=== PATIENT | male | born 1995 ===

== ENCOUNTER → 2017-07-09 | Outpatient (CLI) | payer OTHER, MEDICAID ==
--- NOTE | 2017-07-09 11:17 | NOWCEV ---
[facility] OUTPATIENT REHABILITATION SERVICES WHEELCHAIR CLINIC EVALUATION AND LETTER OF JUSTIFICATION Patient Name: KORY NEAL Physician: Rogers Lee MD [place] Date: 07/09/17 Therapist: Emilee Cabral PT,MSPT Date of : 1995 MR#: [id number] Contact: Ronda Neal Subscriber: KORY NEAL Primary Ins: MEDICARE OUTPATIENT Subscriber #: [id number] EVALUATION FINDINGS Medical history - Kory is a 22y/o male with CP. He has been utilizing a wheelchair for functional/household mobility since the age of 5. His current chair is 6 years old and is showing age related deterioration from continuous daily use. He was referred to this clinic by his doctor to have recommendations for the most medically appropriate wheelchair to fit his needs and optimize function. Functional Mobility - Kory cannot functionally ambulate, even with an AD such as a walker or crutches. He has been using a MWC and occasionally a PWC to access MRADLs in the home and for all mobility since the age of 5. He reports that he will intermittently crawl on hands and knees around hip home if not using his wheelchair. Kory can self propel his current ultralight weight MWC independently within his home on level surfaces, and up ramps of low incline. He does require some physical assistance to push up ramps of greater length or incline. When he does self propel he utilizes short strokes, and his LEs are somewhat extended, so his feet do not remain on his foot plates. Kory is modified independent with a partial stand pivot transfer to/from his MWC. He pushes up with his UEs on his arms rests and maintains a crouched posture throughout the transition. He maintains firm UE support on wheelchair arm rests throughout transfer, and pivots himself using his UEs. He is modified I with sup to/from sit transitions. Head/Trunk control - Kory's head control is WNL. He is able to sit unsupported on a stable surface, and take on min to mod challenges in this position, although has LOB with any greater challenges due to his tone, decreased postural stability and kyphoscoliosis. Motor involvement - Bons LEs are more impacted from his CP than his UEs. He can only move his LEs within synergistic patterns. He has significant spasticity in B LEs (3+ in his hamstring and internal rotators on the modified Haresh scale). He also demonstrates extensor tone in his LE's during self propulsion of his chair. Hip passive hip flexion is limited to 90deg B, his R hip passive ER is limited to ~10degrees, and hip L hip passive ER is limited to 0deg. His LE MMT is as follows: DF: 0/5 B, knee extension R: 3/5, L 3-/5, hip flexion R: 3-/5, L: 2-/5. He demonstrates 4 to 4-/5 strength into shoulder flexion and abduction. He does have impaired loan expeditor strength and decreased coordination in his hands. Posture - Kory sits with significant postural asymmetry. He has a posterior pelvic tilts and large kyphoscoliosis with a R sided convexity, and R thoracic rib hump. His R shoulder is higher than his L and his L ilium is higher than his R. Sitting in his current MWC he leans to the L. His L leg is 1" longer than his R. His L hip is adducted and internally rotated more than his R, and B feet are externally rotated. Skin Sensation - Kory does not have any history of skin breakdown. He is continent of bowel and bladder. Endurance - Kory is in his MWC from the morning through evening daily. ADLs - Kory is modified I with ADLs such as washing up from a wheelchair level. He relies on his grandmother for meal prep and cleaning. Cognitive/Social - Kory lives in a ranch style home with his grandmother, who is his primary caregiver. The home has a level entry. Kory attends a day program 3-4days per week which he attends in his MWC. Current wheelchair - Kory is currently utilizing a Quickie 2 Lite with JayLite cushion and Matrix contoured back rest. The chair is 6 years old and is now too small for Kory as he has gained weight over the past 6 years. The chair is too narrow and the leg length is too short which is not provided appropriate pressure distribution and placing increased pressure through his sacrum. Additionally the chair is showing age related deterioration from constant daily use. MEDICAL and FUNCTIONAL NEED/OBJECTIVES * To replace Kory's ultra light weight MWC and seating system in order to continue allowing his access to MRADLs in the home. PRIMARY FUNCTIONAL LIMITATION (G Code) * Mobility CURRENT STATUS OF PRIMARY FUNCTIONAL LIMITATION (Severity Modifier) * At least 60 percent but less than 80 percent impaired, limited or restricted ( CL) GOAL STATUS OF PRIMARY FUNCTIONAL LIMITATION (Severity Modifier) * At least 60 percent but less than 80 percent impaired, limited or restricted ( CL) DISCHARGE STATUS OF PRIMARY FUNCTIONAL LIMITATION (Severity Modifier) * At least 60 percent but less than 80 percent impaired, limited or restricted ( CL) EQUIPMENT RECOMMENDATIONS AND JUSTIFICATIONS The following recommendations are believed to be the most cost effective way to meet the patients medical and functional needs. * Ultra light weight MWC: Needed to replace Kory's current ultra light weight MWC which is 6 years old and is too small (the seat with is too narrow, and the seat length is too short) as he has gained weight in the past several years, and it is also showing age related deterioration from constant daily use. Kory cannot functionally ambulate, even with an AD such as a walker or crutches. He cannot self propel a standard MWC or even a light weight MWC due to the weight and configuration of these chairs. Kory's kyphoscoliosis and posterior pelvic tilt places his shoulders in a position that is challenging to reach in a fixed propulsion wheel. Kory will have the ability to access the propulsion wheels if their position is more forward (only available on the ultra light weight wheelchair). Additionally the weight of a std MWC or even a light weight MWC is too heavy for Kory to be able to independently self propel himself household distances due to his decreased UE strength, and decreased postural control. Procuring an ultra light weight MWC will allow Kory to maintain his ability to access MRADLs independently in his home. He will lose functional independence and become more reliant on his caregiver without an ultra light weight chair. Kory is able to safely complete a modified stand pivot transfer to/from his wheelchair with supervision. * Skin protection positioning cushion: Needed to accommodate Kory's significant postural asymmetries in order to provide him with postural support and tone management while self propelling. An off the shelf cushion will not accommodate Kory's significant kyphoscoliosis and pelvic obliquity, and will place him at high risk for skin breakdown. Additionally, an off the shelf cushion will not provide the posutral support necessary for Kory to self propel, and will lead to loss of functional independence. Kory has been utilizing an custom cushion since he was a child, and has demonstrated the ability optimize independence and manage risk for skin breakdown with use of this cushion. * Contoured backrest:Needed to optimize Kory's posture to prevent further progression of his kyphoscoliosis, to improve function and to maximize his ability to self propel independently to access MRADLs in the home. Kory has poor postural strength and endurance. An off the shelf backrest would not accommodate Kory's significant postural asymmetries or provide him with adequate postural control to perform ADLs from a wheelchair level. A custom backrest would assist Kory in maintaining upright posture, and place his shoulders in a more neutral position to self propel and perform ADLs from his chair. Additionally it will work in conjunction with Kory's seat cushion to enhance pressure distribution to promote skin health. * Flat free inserts: Needed as Kory is not able to independently perform maintenance on his chair such as maintaining appropriate air pressure in his tires, or changing a flat. Therefore flat free inserts are warranted. * Angle adjustable foot plates: Needed to provide Kory with LE support to maintain the position of his pelvis and posture in his chair. The adjustable angle of the foot plate is needed to maintain Kory's feet on his foot plates due to his abnormal tone. * Toe loops: Needed to maintain Kory's feet on his foot plates when in his chair. Without the toe loops, Kory's legs extend off the foot plates and interfere with mobility due to extensor tone. * Anti-tippers: Needed to prevent Kory's chair from flipping over backward when propelling up ramps or during transfers. * Seatbelt: Needed to stabilize Kory's pelvis to prevent his pelvis from sliding forward in his chair. This will improve his postural stability and ability to self propel. Required for safety when propelling and performing functional tasks from his wheelchair. * Transit tie downs: Needed as Kory attends a day program 3-4days a week, and he is transported in his wheelchair to access activities with the program. Without the tie down's Kory's ability to participate in the program would be greatly impacted. * Clothing guard: Needed to prevent Kory's clothing from becoming caught in her wheels and interfering with independent self propulsion. * Swing away arms rests: Needed to allow Kory to safely complete transfers as he relies strongly on the arms rest for all functional transitions to/from his chair. Swing away is necessary so the arm rest do not interfere with ADLs from a wheelchair level. * Scissor wheel locks: Scissor locks are necessary because the push to lock breaks interfere with his ability to self propel. They also interfere with Kory's transfers. Kory has been effectively utilizing scissor locks on his current ultra light [facility]. These recommendations are based on the likelihood that Kory will require the use of a wheelchair for all mobility and to access MRADLs in his home for the rest of his life. If you have any questions or concerns regarding the stated recommendations, please feel free to contact the therapist at . Thank you for your cooperation in obtaining the necessary equipment for this patient. Emilee Cabral, KAYLEN KOCH
== END ==
PROVIDERS: ATTEND Family Medicine
DX: Z46.89 Encounter for fitting and adjustment of other specified devices (principal); G80.9 Cerebral palsy, unspecified
CPT/HCPCS: 97162; G8978; G8979; G8980